=== PATIENT | female | born 1995 | race Caucasian/White ===

== ENCOUNTER 2017-09-23 01:15 | Inpatient (IN) | payer BC ==
[2017-09-23] MEDS ORDERED: Ondansetron 4 MG/2 ML SDV IVPUSH PRN ×2 (20:14→20:43)
[2017-09-23] MEDS ORDERED: Nalbuphine 20 MG/ML 1 ML Syringe IVPUSH PRN (20:14)
[2017-09-23] MEDS ORDERED: Sodium Chloride 0.9% 10 ML Syringe FLUSH PRN (20:14)
[2017-09-23] MEDS ORDERED: Lidocaine 1% 50 ML MDV INJECT ONE (20:14)
[2017-09-23] MEDS ORDERED: Oxytocin/Lactated Ringers 10 UNIT/1,000 ML BAG IV SCH ×2 (20:15)
[2017-09-23] MEDS: Lactated Ringers 1,000 ML IV SCH ×2 (20:30→21:46)
[2017-09-23] MEDS ORDERED: fentaNYL 100 MCG/2 ML SDV EPIDUR PRN (20:43)
[2017-09-23] MEDS ORDERED: diphenhydrAMINE 50 MG/ML SDV IVPUSH PRN (20:43)
[2017-09-23] MEDS ORDERED: ePHEDrine 50 MG/ML SDV IVPUSH PRN (20:43)
[2017-09-23] MEDS ORDERED: Bupivacaine/fentaNYL/NS 100 ML Bag EPIDUR SCH (20:45)
--- NOTE | 2017-09-23 21:29 | PCM.PREANE ---
Preanesthetic Assessment - Anesthesia/Transfusion/Family Hx Anesthesia History: Prior Anesthesia Without Reaction Transfusion History: No Prior Transfusion(s) - Review of Systems General: No Symptoms Pulmonary: No Symptoms Cardiovascular: No Symptoms Gastrointestinal: Other (Heartburn with ) Neurological: No Symptoms Other: Reports: None - Physical Assessment Pulse: 84 O2 Sat by Pulse Oximetry: 98 Respiratory Rate: 20 Blood Pressure: 113/62 Temperature: 37.0 C Height: 1.6 m Weight: 72.575 kg ASA Class: 2 Mental Status: Alert & Oriented x3 Airway Class: Mallampati = 1 Dentition: Reports: Normal Dentition Thyro-Mental Finger Breadths: 3 Mouth Opening Finger Breadths: 3 ROM/Head Extension: Full Lungs: Clear to Auscultation, Normal Respiratory Effort Cardiovascular: Regular Rate, Regular Rhythm - Lab Values: Laboratory Last Values WBC 8.58 K/mm3 (3.98-10.04) 09/23/17 19:45 RBC 3.57 M/mm3 (3.98-5.22) L 09/23/17 19:45 Hgb 10.5 gm/L (11.2-15.7) L 09/23/17 19:45 Hct 32.0 % (34.1-44.9) L 09/23/17 19:45 MCV 89.6 fl (79.4-94.8) 09/23/17 19:45 MCH 29.4 pg (25.6-32.2) 09/23/17 19:45 MCHC 32.8 g/dl (32.2-35.5) 09/23/17 19:45 RDW Std Deviation 40.5 fL (36.4-46.3) 09/23/17 19:45 Plt Count 159 K/mm3 (182-369) L 09/23/17 19:45 MPV 11.2 fl (9.4-12.3) 09/23/17 19:45 Neut % (Auto) 69.9 % (34.0-71.1) 09/23/17 19:45 Lymph % (Auto) 20.3 % (19.3-51.7) 09/23/17 19:45 [place] % (Auto) 8.9 % (4.7-12.5) 09/23/17 19:45 Eos % (Auto) 0.5 (0.7-5.8) L 09/23/17 19:45 Baso % (Auto) 0.1 % (0.1-1.2) 09/23/17 19:45 Neut # (Auto) 6.00 K/mm3 (1.56-6.13) 09/23/17 19:45 Lymph # (Auto) 1.74 K/mm3 (1.18-3.74) 09/23/17 19:45 [place] # (Auto) 0.76 K/mm3 (0.24-0.36) H 09/23/17 19:45 Eos # (Auto) 0.04 K/mm3 (0.04-0.36) 09/23/17 19:45 Baso # (Auto) 0.01 K/mm3 (0.01-0.08) 09/23/17 19:45 - Allergies Allergies/Adverse Reactions: Allergies Allergy/AdvReac Type Severity Reaction Status Date / Time Penicillins Allergy Rash Verified 09/23/17 20:12 - Acknowledgements Anesthesia Type Planned: Epidural Pt an Appropriate Candidate for the Planned Anesthesia: Yes Alternatives and Risks of Anesthesia Discussed w Pt/Guardian: Yes Pt/Guardian Understands and Agrees with Anesthesia Plan: Yes PreAnesthesia Questionnaire - Past Health History Medical/Surgical History: Denies 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 Smoking Status *Q: Never Smoker Second Hand Smoke Exposure: No Recreational Drug Use History: No - HOME MEDS Home Medications: Home Meds Prenat Vit Comb.10/Iron/Fa/Dha [Vitafol-OB + DHA] 1 tab PO DAILY 09/23/17 [ History] - CURRENT (IN HOUSE) MEDS Current Meds: Current Medications Diphenhydramine HCl (Benadryl) 25 mg IVPUSH Q6H PRN PRN Reason: Pruritis Ephedrine Sulfate (Ephedrine Sulfate) 5 mg IVPUSH ASDIRECTED PRN PRN Reason: Hypotension Fentanyl (Sublimaze) 100 mcg EPIDUR ONETIME PRN PRN Reason: Pain Last Admin: 09/23/17 21:25 Dose: 100 mcg Fentanyl/Bupivacaine HCl (Fentanyl/Bupivacaine/Ns 2 Mcg-0.125% 100 Ml) 100 ml EPIDUR ASDIRECTED JUNIOR Last Admin: 09/23/17 21:25 Dose: 100 ml Lactated Ringer's (Ringers, Lactated) 1,000 mls @ 100 mls/hr IV ASDIRECTED JUNIOR Oxytocin/Lactated Ringer's (Pitocin In Lr 10 Units/1,000 Ml) 10 unit in 1,000 mls @ 12 mls/hr IV TITRATE JUNIOR; Protocol Oxytocin/Lactated Ringer's (Pitocin In Lr 10 Units/1,000 Ml) 10 unit in 1,000 mls @ 100 mls/hr IV .CONTINUOUS JUNIOR; Protocol Nalbuphine HCl (Nubain) 10 mg IVPUSH Q2H PRN PRN Reason: pain Ondansetron HCl (Zofran) 4 mg IVPUSH Q4H PRN PRN Reason: Nausea/Vomiting Ondansetron HCl (Zofran) 4 mg IVPUSH ONETIME PRN PRN Reason: Nausea/Vomiting Sodium Chloride (Saline Flush) 10 ml FLUSH ASDIRECTED PRN PRN Reason: Keep Vein Open Discontinued Medications Lidocaine HCl (Xylocaine 1%) 50 ml INJECT ONETIME ONE Stop: 09/23/17 20:15
[2017-09-23] MEDS ORDERED: Bupivacaine 0.25% 10 ML SDV ONE (22:00)
[2017-09-24] MEDS ORDERED: Calcium Carbonate 500 MG Tab.Chew PO PRN (00:09)
--- NOTE | 2017-09-24 01:51 | PCM.SN ---
- Free Text/Narrative Note: Destiny is a 22-year-old 1 now para 1001 white female who was admitted on the evening of 09/23/2017 for elective induction of labor at 40-1/7 weeks gestational age. KEY was on 09/22/2017. As determined by certain LMP and ultrasound 2. Patient was induced with artificial rupture membranes with resultant clear amniotic fluid. She underwent epidural for analgesia in labor. She progressed rapidly within the course of 6-7 hours went to complete cervical dilation. She delivered a viable, 3880 g (8 pound 8.9 ounce) male infant with Apgars of 8 and 9, a length of 21 inches in an occiput anterior position. Baby delivered without problems and was placed on mom's abdomen. The baby was dried. Mouth bulb suctioned. The umbilical cord was clamped 2 and was cut by the patient's Patrick. Cord revealed 3 blood vessels. Cord blood was obtained. The patient was noted to have a small superficial vaginal laceration at approximately 6:30 position extending into the right labia minora somewhat. This was repaired with a running lock suture of 3-0 Monocryl. It should be noted Pitocin was started after delivery of the baby via IV to facilitate increase in uterine tone and decrease risk for uterine bleeding. The placenta delivered in a Kilpatrick presentation, appeared intact and complete and was discarded per patient desire. Patient plans to breast-feed. Estimated blood loss was 100 mL. Condition: Good
[2017-09-24] MEDS ORDERED: Lanolin 100% Cream 7 GM Tube TOP PRN (01:56)
[2017-09-24] MEDS ORDERED: Witch Hazel Medicated Pads 100/Jar TOP PRN (01:56)
[2017-09-24] MEDS ORDERED: Benzocaine/Menthol 20%-0.5% Spray 56 GM Canister TOP PRN (01:56)
[2017-09-24] MEDS: Ibuprofen 600 MG Tab PO PRN ×3 (02:09→22:30)
[2017-09-24] MEDS ORDERED: diphenhydrAMINE 25 MG Cap PO ONE (05:39)
[2017-09-24] MEDS ORDERED: diphenhydrAMINE 25 MG Cap PO PRN (06:50)
--- NOTE | 2017-09-24 07:37 | HP ---
DATE OF ADMISSION: 09/23/2017 ADMISSION DIAGNOSIS: A 40 and 1/7th week intrauterine , elective induction of labor. HISTORY OF PRESENT ILLNESS: The patient is a 22-year-old, 1, para 0 white female, who is admitted at 40 and 1/7th weeks' gestational age for elective induction of labor. Her KEY is 09/22/2017 as based upon a certain last menstrual period which started on 12/16/2016 and is supported by 2 ultrasounds done on 02/28/2017 and 05/08/2017. Her cycles started at age 11. They occur every 28 days. The patient was not using any control at the time of conception. Her HCG was positive on 01/12/2017. She had stopped her control around August 2016 with the intent of getting . The patient has had a normal 1-hour glucose tolerance test during the course. She declined genetic testing in the period. Her [place] Depression Screen score on 04/25/2017 was 2/30 and on 06/12/2017 was 6/30. She is group B strep negative. She desires epidural in Labor and Delivery. She is Rh negative and did have RhoGAM that was given at the end of the 2nd trimester. Her course started on 02/28/2017 with her first visit at 10 and 4/7th weeks. She had regular visitations and was a Centering patient. Made good fundal height growth and had normal vital signs throughout the . Her weight gain was from 109.6 pounds up to 155 pounds for a 45-pound weight gain. Laboratory testing in shows her blood to be A positive with a negative antibody screen. First labs showed a hemoglobin of 13.9 g/dL and a platelet count of 240,000. She is rubella immune. RPR is nonreactive. Urine culture was negative. Hepatitis B surface antigen and HIV assays were both negative. Gonorrhea and chlamydia were both negative. Her 1-hour GTT was normal on 06/04/2017 at 107. Her second trimester hemoglobin was 12.4 and her platelet count was 178,000. She is group B strep negative. ALLERGIES: Penicillin, which causes hives. CURRENT MEDICATIONS: 1. Ranitidine 150 mg capsules every 12 hours p.r.n. 2. vitamins 1 daily. 3. Zofran early in the for nausea, now not taking. PAST MEDICAL HISTORY: Unremarkable. PAST SURGICAL HISTORY: Unremarkable. FAMILY HISTORY: The patient has 3 younger siblings, all healthy except for younger sister has ADD and another sister with anxiety. Several with migraine problems. Mother is alive, but has migraine issues, psoriasis, and alopecia. Father is alive and well. Maternal aunts have had tough pregnancies and multiple miscarriages. Maternal grandmother is alive and well with the exception of migraine headaches. Maternal grandfather is alive, but with a history of skin cancer. Paternal grandmother is alive, but has questionable Alzheimer's early onset and paternal grandfather is alive and well. No anesthesia, bleeding, blood clotting problems noted in the family. SOCIAL HISTORY: The patient is . They live in [place], [place]. She does not use any significant amounts of alcohol, drugs, or tobacco. Her 's name is Patrick Peralta. REVIEW OF SYSTEMS: GENERAL: The patient is having no concerns. She feels some contractions. She has had good activity. SKIN: Negative. CARDIOVASCULAR: No chest pain or exercise intolerance. RESPIRATORY: No shortness of breath or infectious symptoms. BREASTS: Negative with the exception of change in size and tenderness secondary to . The patient plans to breast feed. GI: Negative. : Increased fundal height with fundal height consistent with dates. EXTREMITIES/MUSCULOSKELETAL: Negative with the exception of occasional trace edema. NEUROLOGICAL: Negative. PSYCHOLOGICAL: Negative. PHYSICAL EXAMINATION: Pregravid weight was 109.6 pounds. Height is 5 feet 3 inches. Pregravid body mass index was 20.4. On last evaluation in clinic on 09/18/2017, her blood pressure was 121/76, weight was 155 pounds, and fundal height growth was 38 cm. heart rate was 138 beats per minute. Weight gain during the was 45 pounds. GENERAL: The patient is a well-developed, well-nourished, pleasant female, stated age, in no acute distress. SKIN: Warm, dry, without lesions. HEENT: Within normal limits. NECK: Within normal limits. BACK: Within normal limits. LUNGS: Clear with good breath sounds in all lung mason. BREASTS: Deferred. ABDOMEN: Protuberant with with last fundal height at 38+ cm. Baby in vertex presentation. : Cervical exam shows cervix to be 2+ cm, 90% effaced, -2 station, mid position, very soft. After discussion of artificial rupture of membranes, induction is undertaken and the patient tolerated this very well. EXTREMITIES: Grossly within normal limits. NEUROLOGICAL: Grossly within normal limits. ASSESSMENT: 1. A 40 and 1/7th week intrauterine , admitted for elective induction of labor. The patient has had very adequate cervical change since her last evaluation on 09/10/2017. 2. Group B strep negative. 3. Rubella is immune. 4. The patient plans to breastfeed. 5. The patient desires epidural in Labor and Delivery. PLAN: 1. Anticipate normal spontaneous vaginal delivery. 2. Epidural p.r.n. for pain. 3. Routine labor care. 4. Very light diet. MMODAL /[id number]
--- NOTE | 2017-09-24 08:32 | PCM48HPAN ---
Post Anesthesia Note - EVALUATION WITHIN 48HRS OF ANESTHETIC Vital Signs in Normal Range: Yes Patient Participated in Evaluation: Yes Respiratory Function Stable: Yes Airway Patent: Yes Cardiovascular Function Stable: Yes Hydration Status Stable: Yes Pain Control Satisfactory: Yes Nausea and Vomiting Control Satisfactory: Yes Mental Status Recovered: Yes Pulse Rate: 84 Resp Rate: 20 Temperature: 98.6 F Blood Pressure: 113/62
--- NOTE | 2017-09-24 08:47 | PCM.SN ---
- Free Text/Narrative Note: note: Patient is doing well in the period. Minimal lochia, voiding well, ambulated without problems. Nursing without concerns. Patient is afebrile, vital signs are stable Abdomen is flat, soft, uterus at the umbilicus and is firm and nontender. Legs are nontender. Minimal edema noted. Assessment: recovery going well. Plan: Routine care. CBC in a.m. Patient be discharged home within the next 24-48 hours.
[2017-09-24] MEDS: Prenatal Multivitamin with Calcium/Folic Acid/Iron Tab PO SCH (13:09)
[2017-09-24] MEDS: Docusate Sodium 100 MG Cap PO PRN (15:58)
[2017-09-24] MEDS: Acetaminophen 325 MG Tab PO PRN (16:00)
[2017-09-25] MEDS: Acetaminophen 325 MG Tab PO PRN (03:45)
[2017-09-25] MEDS: Ibuprofen 600 MG Tab PO PRN ×2 (04:18→08:41)
[2017-09-25] MEDS: Prenatal Multivitamin with Calcium/Folic Acid/Iron Tab PO SCH (08:29)
[2017-09-25] MEDS: Docusate Sodium 100 MG Cap PO PRN (08:42)
--- NOTE | 2017-09-25 09:37 | PCM.DCSUM1 ---
Discharge Summary - Hospital Course Free Text/Narrative:: Destiny is a 22-year-old 1 now para 1001 white female who was admitted on the evening of 09/23/2017 for elective induction of labor at 40-1/7 weeks gestational age. KEY was on 09/22/2017. As determined by certain LMP and ultrasound 2. Patient was induced with artificial rupture membranes with resultant clear amniotic fluid. She underwent epidural for analgesia in labor. She progressed rapidly within the course of 6-7 hours went to complete cervical dilation. She delivered a viable, 3880 g (8 pound 8.9 ounce) male infant with Apgars of 8 and 9, a length of 21 inches in an occiput anterior position. Baby delivered without problems and was placed on mom's abdomen. The baby was dried. Mouth bulb suctioned. The umbilical cord was clamped 2 and was cut by the patient's Patrick. Cord revealed 3 blood vessels. Cord blood was obtained. The patient was noted to have a small superficial vaginal laceration at approximately 6:30 position extending into the right labia minora somewhat. This was repaired with a running lock suture of 3-0 Monocryl. It should be noted Pitocin was started after delivery of the baby via IV to facilitate increase in uterine tone and decrease risk for uterine bleeding. The placenta delivered in a Kilpatrick presentation, appeared intact and complete and was discarded per patient desire. Patient plans to breast-feed. Estimated blood loss was 100 mL. patient has done well. She had normal with normal flow, voiding and is nursing well. She is desiring discharge home. Diagnosis: Stroke: No - Discharge Data Discharge Date: 09/25/17 Discharge Disposition: Home, Self-Care 01 Condition: Good - Patient Instructions Diet: Regular Diet as Tolerated (Nursing diet with increase in calories and calcium is recommended) Activity: As Tolerated (No intercourse tampons still bleeding results.) Driving: May Drive Today Showering/Bathing: May Shower (May take a bath) Notify Provider of: Fever, Increased Pain, Swelling and Redness, Nausea and/or Vomiting - Discharge Plan *PRESCRIPTION DRUG MONITORING PROGRAM REVIEWED*: No *COPY OF PRESCRIPTION DRUG MONITORING REPORT IN PATIENT DEB: No Home Medications: Home Meds Prenat Vit Comb.10/Iron/Fa/Dha [Vitafol-OB + DHA] 1 tab PO DAILY 09/23/17 [ History] Acetaminophen [Tylenol] 650 mg PO Q4H PRN tablet 09/25/17 [Rx] Ibuprofen [Motrin] 600 mg PO Q4H PRN tablet 09/25/17 [Rx] - Discharge Summary/Plan Comment DC Time >30 min.: No Discharge Summary/Plan Comment: Discharge instructions: 1. Discharge home 2. Diet, activity and follow-up discussed with patient. Recommend nursing diet with increased calories and calcium. 3. Precautions given concern increased pain, bleeding, temperature, signs/ symptoms of DVT/PE. 4. Medications per home medication was printed, discussed with and given to the patient. 5. Return to clinic-[facility] in 2 weeks. Diagnosis: Term -delivered Condition: Good - Patient Data Vitals - Most Recent: Last Vital Signs Temp 36.7 C 09/25/17 03:47 Pulse 86 09/25/17 03:47 Resp 16 09/25/17 03:47 BP 129/78 09/25/17 03:47 Pulse Ox 100 09/25/17 03:47 Weight - Most Recent: 72.575 kg I&O - Last 24 hours: Intake & Output 09/24/17 09/25/17 09/25/17 22:59 06:59 14:59 Intake Total 0 Balance 0 Lab Results - Last 24 hrs: Laboratory Results - last 24 hr 09/23/17 09/25/17 Range/Units 19:45 06:35 WBC 10.05 H (3.98-10.04) K/mm3 RBC 3.16 L (3.98-5.22) M/mm3 Hgb 9.2 L (11.2-15.7) gm/L Hct 28.7 L (34.1-44.9) % MCV 90.8 (79.4-94.8) fl MCH 29.1 (25.6-32.2) pg MCHC 32.1 L (32.2-35.5) g/dl RDW Std Deviation 40.9 (36.4-46.3) fL Plt Count 140 L (182-369) K/mm3 MPV 10.9 (9.4-12.3) fl RPR Non-reactive (NONREACTIVE) Med Orders - Current: Current Medications Acetaminophen (Tylenol) 650 mg PO Q4H PRN PRN Reason: mild pain or fever Last Admin: 09/25/17 03:45 Dose: 650 mg Benzocaine/Menthol (Dermoplast Pain Relief [place]) 0 gm TOP ASDIRECTED PRN PRN Reason: Perineal Comfort Measure Last Admin: 09/24/17 02:10 Dose: 1 can Docusate Sodium (Colace) 100 mg PO BID PRN PRN Reason: Constipation Last Admin: 09/25/17 08:42 Dose: 100 mg Emollient Ointment (Lansinoh Hpa) 0 gm TOP ASDIRECTED PRN PRN Reason: Sore Nipples Last Admin: 09/25/17 08:29 Dose: 1 applic Ibuprofen (Motrin) 600 mg PO Q4H PRN PRN Reason: Mild pain or fever Last Admin: 09/25/17 08:41 Dose: 600 mg Prenat Multivit/[place]/Iron/Folic Ac ( Plus Iron) 1 each PO DAILY JUNIOR Last Admin: 09/25/17 08:29 Dose: 1 each Witch Sandhya (Tucks) 1 pad TOP ASDIRECTED PRN PRN Reason: Hemorrhoid pain Last Admin: 09/24/17 02:11 Dose: 1 can Discontinued Medications Bupivacaine HCl (Sensorcaine-Mpf 0.25%) 10 ml .ROUTE .STK-MED ONE Stop: 09/23/17 22:01 Calcium Carbonate/Glycine (Tums) 1,000 mg PO Q2HR PRN PRN Reason: Indigestion Last Admin: 09/24/17 00:30 Dose: 1,000 mg Diphenhydramine HCl (Benadryl) 25 mg IVPUSH Q6H PRN PRN Reason: Pruritis Last Admin: 09/23/17 21:38 Dose: 25 mg Diphenhydramine HCl (Benadryl) 25 mg PO ONETIME ONE Stop: 09/24/17 05:40 Last Admin: 09/24/17 06:00 Dose: 25 mg Diphenhydramine HCl (Benadryl) 25 mg PO ONETIME PRN PRN Reason: may repeat dose given at 645am Stop: 09/24/17 07:30 Ephedrine Sulfate (Ephedrine Sulfate) 5 mg IVPUSH ASDIRECTED PRN PRN Reason: Hypotension Fentanyl (Sublimaze) 100 mcg EPIDUR ONETIME PRN PRN Reason: Pain Last Admin: 09/23/17 21:25 Dose: 100 mcg Fentanyl/Bupivacaine HCl (Fentanyl/Bupivacaine/Ns 2 Mcg-0.125% 100 Ml) 100 ml EPIDUR ASDIRECTED JUNIOR Last Admin: 09/23/17 21:25 Dose: 100 ml Lactated Ringer's (Ringers, Lactated) 1,000 mls @ 100 mls/hr IV ASDIRECTED JUNIOR Last Admin: 09/23/17 21:46 Dose: 100 mls/hr Oxytocin/Lactated Ringer's (Pitocin In Lr 10 Units/1,000 Ml) 10 unit in 1,000 mls @ 12 mls/hr IV TITRATE JUNIOR; Protocol Oxytocin/Lactated Ringer's (Pitocin In Lr 10 Units/1,000 Ml) 10 unit in 1,000 mls @ 100 mls/hr IV .CONTINUOUS JUNIOR; Protocol Last Admin: 09/24/17 01:54 Dose: 500 mls/hr Lidocaine HCl (Xylocaine 1%) 50 ml INJECT ONETIME ONE Stop: 09/23/17 20:15 Nalbuphine HCl (Nubain) 10 mg IVPUSH Q2H PRN PRN Reason: pain Ondansetron HCl (Zofran) 4 mg IVPUSH Q4H PRN PRN Reason: Nausea/Vomiting Ondansetron HCl (Zofran) 4 mg IVPUSH ONETIME PRN PRN Reason: Nausea/Vomiting Sodium Chloride (Saline Flush) 10 ml FLUSH ASDIRECTED PRN PRN Reason: Keep Vein Open
== END 2017-09-25 12:30 | disposition home or self-care (01) | DRG 560 ==
LOC: JD.OB 01:15 → OBSVTOIN 09-24 01:15 → JD.OB 09-24 01:30
PROVIDERS: ADMIT Obstetrics & Gynecology; ATTEND Obstetrics & Gynecology
PROC: 0UQGXZZ Repair Vagina, External Approach (ICD-10-PCS; principal; 2017-09-24)
PROC: 10E0XZZ Delivery of Products of Conception, External Approach (ICD-10-PCS; principal; 2017-09-24)
PROC: 10907ZC Drainage of Amniotic Fluid, Therapeutic from Products of Conception, Via Natural or Artificial Opening (ICD-10-PCS; principal; 2017-09-24)
PROC: 6A550ZT Pheresis of Cord Blood Stem Cells, Single (ICD-10-PCS; principal; 2017-09-24)
PROC: 00HU33Z Insertion of Infusion Device into Spinal Canal, Percutaneous Approach (ICD-10-PCS; 2017-09-24)
PROC: 3E0R3BZ Introduction of Anesthetic Agent into Spinal Canal, Percutaneous Approach (ICD-10-PCS; 2017-09-24)
DX: O48.0 Post-term pregnancy (principal); Z3A.40 40 weeks gestation of pregnancy; O71.4 Obstetric high vaginal laceration alone; Z37.0 Single live birth
CPT/HCPCS: 01967; 36415; 51702; 59020; 59300; 59409; 85025; 85027; 86592; A9270-GY; J1200; J2590; J3010; J3490; J7120

== ENCOUNTER 2018-06-23 14:07 | Emergency (ER) | payer BC ==
[2018-06-23] MEDS ORDERED: Sodium Chloride 0.9% 10 ML Syringe FLUSH PRN (14:58)
[2018-06-23] MEDS ORDERED: Ketorolac 30 MG/ML SDV IVPUSH ONE (14:58)
[2018-06-23] MEDS ORDERED: Lactated Ringers 1,000 ML IV ONE (14:58)
[2018-06-23] MEDS ORDERED: Cephalexin 500 MG Cap PO ONE (15:03)
--- NOTE | 2018-06-23 15:41 | EDM.PDOC ---
ED HPI GENERAL MEDICAL PROBLEM - General Chief Complaint: General Stated Complaint: BREAST PAIN Time Seen by Provider: 06/23/18 15:02 Source of Information: Reports: Patient History Limitations: Reports: No Limitations - History of Present Illness INITIAL COMMENTS - FREE TEXT/NARRATIVE: 23 year old female presents for evaluation and treatment of breast pain. Patient reports she has had intermittent breast pain for several weeks. Reports last night she developed severe pain to the right breast. She reports associated symptoms of fevers, chills, nausea, vomiting, headaches, bodyaches and diaphoresis. She is currently her 9 month old son. Estimates she is about 6 times a day. Tried ibuprofen for pain and discomfort. Last dose was at 0730 this morning. She has never had mastitis before and denies any problems with engorgement recently. Ob is Dr. Charles and Ceci Plata. 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 Denies: Abdominal Pain : Reports: No Symptoms. Denies: Dysuria Neurological: Reports: Headache ED EXAM, GENERAL - Physical Exam Exam: See Below Exam Limited By: No Limitations General Appearance: Alert, WD/WN, Mild Distress Eye Exam: Bilateral Eye: Normal Inspection Ears: Normal External Exam Throat/Mouth: Normal Inspection, Normal Lips, Normal Voice, No Airway Compromise , Other (dry mucus membranes) Respiratory/Chest: No Respiratory Distress, Lungs Clear, Normal Breath Sounds, Other (right breast lateral side is erythematous, tender and warm to touch from approximately 6 o'clock to 11 o'clock on the right breast) Cardiovascular: Normal Peripheral Pulses, Regular Rate, Rhythm, No Murmur Neurological: Alert, Oriented, Normal Cognition Psychiatric: Normal Affect, Normal Mood Skin Exam: Warm, Dry, Normal Color Course - Vital Signs Last Recorded V/S: Last Vital Signs Temp 97.8 F 06/23/18 14:17 Pulse 93 06/23/18 14:17 Resp 18 06/23/18 14:17 BP 103/65 06/23/18 14:17 Pulse Ox 100 06/23/18 14:17 - Orders/Labs/Meds Orders: Active Orders 24 hr Category Date Time Status Peripheral IV Care [RC] . DIRECTED Care 06/23/18 14:58 Active CULTURE WOUND [RM] Stat Lab 06/23/18 16:59 Ordered Sodium Chloride 0.9% [Saline Flush] Med 06/23/18 14:58 Active 10 ml FLUSH ASDIRECTED PRN Peripheral IV Insertion Adult [OM.PC] Routine Oth 06/23/18 14:58 Ordered Medication Orders Sodium Chloride (Saline Flush) 10 ml FLUSH ASDIRECTED PRN PRN Reason: Keep Vein Open Last Admin: 06/23/18 15:49 Dose: 10 ml Labs: Laboratory Tests 06/23/18 06/23/18 Range/Units 15:33 15:33 WBC 13.96 H (3.98-10.04) K/mm3 RBC 4.52 (3.98-5.22) M/mm3 Hgb 14.0 D (11.2-15.7) gm/L Hct 40.0 (34.1-44.9) % MCV 88.5 (79.4-94.8) fl MCH 31.0 (25.6-32.2) pg MCHC 35.0 (32.2-35.5) g/dl RDW Std Deviation 37.4 (36.4-46.3) fL Plt Count 233 (182-369) K/mm3 MPV 9.7 (9.4-12.3) fl Neut % (Auto) 88.0 H (34.0-71.1) % Lymph % (Auto) 6.9 L (19.3-51.7) % Parmer % (Auto) 4.4 L (4.7-12.5) % Eos % (Auto) 0.5 L (0.7-5.8) Baso % (Auto) 0.1 (0.1-1.2) % Neut # (Auto) 12.28 H (1.56-6.13) K/mm3 Lymph # (Auto) 0.97 L (1.18-3.74) K/mm3 Parmer # (Auto) 0.61 H (0.24-0.36) K/mm3 Eos # (Auto) 0.07 (0.04-0.36) K/mm3 Baso # (Auto) 0.02 (0.01-0.08) K/mm3 Manual Slide Review Abnormal smear C-Reactive Protein 7.0 H* (<1.0) mg/dL Meds: Medications Generic Name Dose Route Start Last Admin Trade Name Freq PRN Reason Stop Dose Admin Sodium Chloride 10 ml 06/23/18 14:58 06/23/18 15:49 Saline Flush FLUSH 10 ml ASDIRECTED PRN Administration Keep Vein Open Discontinued Medications Generic Name Dose Route Start Last Admin Trade Name Freq PRN Reason Stop Dose Admin Cephalexin 500 mg 06/23/18 15:03 06/23/18 15:49 Keflex PO 06/23/18 15:04 500 mg ONETIME ONE Administration Lactated Ringer's 1,000 mls @ 999 mls/hr 06/23/18 14:58 06/23/18 15:48 Ringers, Lactated IV 06/23/18 15:58 999 mls/hr .BOLUS ONE Administration Ketorolac Tromethamine 30 mg 06/23/18 14:58 06/23/18 15:46 Toradol IVPUSH 06/23/18 14:59 30 mg ONETIME ONE Administration Ondansetron HCl 4 mg 06/23/18 15:48 06/23/18 15:51 Zofran IVPUSH 06/23/18 15:49 4 mg ONETIME ONE Administration - Re-Assessments/Exams Free Text/Narrative Re-Assessment/Exam: 06/23/18 17:19 Reviewed the labs with the patient. Will start on cephalexin due to pcn allergy. Encouraged to use tylenol, motrin, heat and ice and to continue to pump or breast feed. Follow-up in 2-3 days to ensure improvement. Discharge instructions as documented. Departure - Departure Time of Disposition: 17:40 Disposition: Home, Self-Care 01 Condition: Fair Clinical Impression: Mastitis - Discharge Information *PRESCRIPTION DRUG MONITORING PROGRAM REVIEWED*: No *COPY OF PRESCRIPTION DRUG MONITORING REPORT IN PATIENT DEB: No Instructions: Mastitis, Heih-ol-Ervi Referrals: Giovanni Charles MD [Primary Care Provider] - Forms: ED Department Discharge Additional Instructions: Rx from [facility] zofran 4mg sublingual #10 cephalexin 500mg PO every 6 hours x 10 days #40 Take the cephalexin as prescribed 1 cap PO every 6 hours x 10 days. zofran 4mg sublingual every 8 hours prn nausea Alternate between tylenol and motrin every 3 hours. You may take up to 3200mg of ibuprofen in one day and up to 4grams of tylenol in one day. Utilize heat and cold packs for additional pain relief. Continue to breast feed or pump to help unclog any blocked milk ducts. Follow-up with Ob Sunday or Sunday. If you are not improving you may require additional testing or a change in your antibiotics. Please return to the ER should your symptoms change or worsen. - My Orders Last 24 Hours: My Active Orders 06/23/18 14:58 Peripheral IV Care [RC] . DIRECTED Sodium Chloride 0.9% [Saline Flush] 10 ml FLUSH ASDIRECTED PRN Peripheral IV Insertion Adult [OM.PC] Routine 06/23/18 16:59 CULTURE WOUND [RM] Stat - Assessment/Plan Last 24 Hours: My Active Orders 06/23/18 14:58 Peripheral IV Care [RC] . DIRECTED Sodium Chloride 0.9% [Saline Flush] 10 ml FLUSH ASDIRECTED PRN Peripheral IV Insertion Adult [OM.PC] Routine 06/23/18 16:59 CULTURE WOUND [RM] Stat
[2018-06-23] MEDS ORDERED: Ondansetron 4 MG/2 ML SDV IVPUSH ONE (15:48)
== END 2018-06-23 17:30 | disposition home or self-care (01) ==
LOC: JD.ED 14:07
DX: N61.0 Mastitis without abscess (principal); Z88.0 Allergy status to penicillin
CPT/HCPCS: 36415; 85025; 86140; 87070; 96361; 96374; 96375; 99283; A9270; J1885; J2405; J7120; 99284

== ENCOUNTER 2019-06-03 07:07 | Inpatient (IN) | payer BC, OTHER ==
--- NOTE | 2019-06-02 19:09 | PCM.LDHP ---
L&D History of Present Illness - General Date of Service: 06/03/19 Admit Problem/Dx: Admission Diagnosis/Problem Admission Diagnosis/Problem 06/02/19 18:39 Destiny is a 24-year-old 2 para 1001 white female who is presently at 37- 5/7 weeks gestational age with an KEY of 06/21/2019 who is being admitted for pruritis in and elevated bile acids. Findings suggestive but not absolute for the diagnosis of intrahepatic cholestasis of . Source of Information: Patient History Limitations: Reports: No Limitations - History of Present Illness Introduction:: Destiny is a 24-year-old 2 para 1001 white female who is presently at 37- 5/7 weeks gestational age with an KEY of 06/21/2019 who is being admitted for pruritis in and elevated bile acids. Findings suggestive but not absolute for the diagnosis of intrahepatic cholestasis of .Patient's bile acids were evaluated 04/24/2019 because the patient's severe internal Internal itching without a rash. Total glasses returned at 3.7 which is normal however her ursodeoxycholic acid was elevated at 3.0. Paracolic acid was less than 0.10. She no deoxycholic acid was normal at 0.40. The deoxycholic acid was 0.60normal. Because of the severe retractable itching patient was started on ursodiol prior to the bile acid results become available. She was on 300 mg by mouth 3 times a day. She is also started on hydroxyzine 50 mg by mouth every 6 hours when necessary for itching. With this therapy patient's itching became manageable however it persisted throughout the remainder of the . Has of the patient's clinical symptoms, her elevated some fraction of bile acid and the improvement that she received from the ursodiol and hydroxyzine therapy the decision was made to proceed with testing and consider earlier medical induction of labor. She was evaluated with biophysical profile from approximately 31 weeks until the present time. These have returned 09/12 each week. Reported good activity. Baby is showing good fundal height growth. She is scheduled for induction and I recommended Pitocin induction with AROM augmentation. The process, risks, benefits, alternatives of care are discussed in detail with patient. With her concern for the well-being of her baby she was decided to proceed. 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 Her KEY is 06/21/2019 is based upon an early ultrasound done 11/01/2018 placing her at 6-6/7 weeks gestational age. Multiple ultrasounds done throughout the are supportive of this KEY. Her last menstrual period was on 09/09/2018. She had menarche at age 11. Cycles every 28 days. Not using any control time conception. Her past obstetric history includes a male infant born 09/24/2017 at 40-2/7 weeks gestational age after 5 hours of labor. The baby weighed 8 lbs. 9 oz. She had a normal spontaneous vaginal delivery. Epidural was used for analgesia. Baby delivered at [facility]. Child's name is Vince. She denies any STI's. Also denies any abnormal Pap smears. She has had a history of depression in the past placing her at higher risk for depression with this . course: Patient was seen on a regular basis starting on the 2018 for an early ultrasound. She is dated by this ultrasound. She was seen regularly and weakly towards the end. Her weight gain was from a pre- weight of 109.2 pounds to a final weight of 150 pounds for a or 40.8 pound increase. Other than the severe pruritis and the somewhat atypical findings supportive but not diagnostic of the diagnosis of intrahepatic cholestasis of patient has had a relatively normal course. Her vital signs stable and her fundal height growth has been normal. testing with biophysical profiles and nonstress tests has been reassuring. She has received her T Dap and her flu immunization during course. Laboratory testing and blood is a negative with a negative and by screen. First hemoglobin is 14.5 g or deciliter. Platelets are 219, 000. She is rubella immune. Urine culture was unremarkable. Second trimester testing showed a hemoglobin 12.1 g or deciliter with platelets at 181,000. Her screening was negative and patient received RhoGAM on 04/10/2019. Third trimester hemoglobin was 11.6 and platelets are 157,000. This laboratory test was done on 04/10/2019. Early on her progesterone and serum quantitative beta hCG were rising appropriately. Her GGT on 04/08/2019 was 7. Group B strep screen is negative. Patient had a [facility] noninvasive genetic testing which was unremarkable. She plans to breast-feed. She did have migraine headaches and some nausea and vomiting early . Desires epidural in labor and delivery. Allergies: Penicillin which causes hives Medications: 1. Hydroxyzine HCL 50 mg by mouth every 6 hours when necessary for itching. 2. Ursodiol 300 mg by mouth 3 times a day. 3. Zofran early in at 4 mg by mouth every 4 hours when necessary for nausea. 4. Diclegis when necessary for nausea early in . 5. vitamins daily Past medical history: 1. Normal spontaneous vaginal delivery 09/24/2017 2. History of depression on medications approximately 2017 3. Atypical intrahepatic cholestasis of . Family history: Patient has 3 younger siblings are healthy except for younger sister has ADD and another sister with anxiety disorder. Several migraine problems. Mother is alive and well with the exception of migraine headaches, psoriasis and alopecia. Maternal aunts have had difficult and multiple miscarriages but otherwise are healthy. Maternal grandmother is alive and well with the exception of migraine headaches. Maternal grandfather is alive with history of skin cancers. Father is alive and well. Paternal grandmother is alive with possible Alzheimer's. Paternal grandfather is alive and well. No anesthesia, bleeding, blood clotting tones are noted in the family. Social history: Patient is . is [employer]. She and her family live in [place], [place]. She does not use any significant most alcohol, drugs or tobacco. Review of systems: In general patient is only main concern is P rhinitis which is manageable with medication therapy. She reports good activity and no significant contractions. Skin: Negative Lungs: No infectious symptoms or shortness of breath Cardiovascular: No chest pain or exercise intolerance Breasts: Changes associated with .. GI: Negative : Fundal height increased consistent with . AB has been Musculoskeletal: Negative Neurological: Negative In general the patient is well-developed, well-nourished, pleasant female of stated age was only concern is her pruritus. Skin is warm dry without lesions. No rashes are noted. HEENT, neck and back within normal limits. Lungs are clear with good breath sounds in all lung mason. Cardiovascular exam shows regular and rhythm without murmurs. Breasts: Not evaluated at this time. Patient reports no problems with breasts. She is planning on nursing. Abdomen is gravid. Fundal height on last evaluation clinic at 37 weeks was 37 cm with baby in a vertex presentation.. Genital exam per digital evaluation shows cervix to be 2 cm, 50% effaced, soft, mid position, -2 station. Extremities and neurological exam are grossly within normal limits. 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 37-5/7 week IUP with classical symptoms for intrahepatic cholestasis of but without elevation of all bile acid sub fractions. She is admitted for medical induction of labor. 2. testing has been reassuring with BPP is 8/8 and reactive nonstress test done weekly. 3. Group B strep screen is negative. 4. The patient plans to breast-feed. 5. Patient received her influenza immunization on 12/25/2018, her T-dap on 2019. She is rubella immune. Patient desires epidural in labor and delivery. Plan: 1. Medical induction of labor on 06/03/2019 with Pitocin followed by AROM augmentation. 2. CBC, CMP, RPR upon admission. 3. Support breast-feeding decision 4. Epidural per patient desire in labor. 5. Anticipate normal spontaneous vaginal delivery.
[2019-06-03] MEDS ORDERED: Lidocaine 1% 50 ML MDV INJECT ONE (08:04)
[2019-06-03] MEDS ORDERED: Nalbuphine 10 MG/ML Syringe IVPUSH PRN (08:04)
[2019-06-03] MEDS ORDERED: Sodium Chloride 0.9% 10 ML Syringe FLUSH PRN (08:04)
[2019-06-03] MEDS ORDERED: Oxytocin/Lactated Ringers 10 UNIT/1,000 ML BAG IV SCH ×2 (08:15)
--- NOTE | 2019-06-03 08:18 | PCM.PREANE ---
Preanesthetic Assessment - Procedure Proposed Procedure: Continuous labor epidural - Anesthesia/Transfusion/Family Hx Anesthesia History: Prior Anesthesia Without Reaction Transfusion History: No Prior Transfusion(s) - Review of Systems General: No Symptoms Pulmonary: No Symptoms Cardiovascular: No Symptoms Gastrointestinal: No Symptoms Neurological: No Symptoms Other: Reports: None - Physical Assessment ASA Class: 2 Mental Status: Alert & Oriented x3 Airway Class: Mallampati = 2 Dentition: Reports: Normal Dentition Thyro-Mental Finger Breadths: 3 Mouth Opening Finger Breadths: 3 ROM/Head Extension: Full Lungs: Clear to Auscultation, Normal Respiratory Effort Cardiovascular: Regular Rate, Regular Rhythm - Allergies Allergies/Adverse Reactions: Allergies Allergy/AdvReac Type Severity Reaction Status Date / Time Penicillins Allergy Hives Verified 06/03/19 08:10 - Acknowledgements Anesthesia Type Planned: Epidural Pt an Appropriate Candidate for the Planned Anesthesia: Yes Alternatives and Risks of Anesthesia Discussed w Pt/Guardian: Yes Pt/Guardian Understands and Agrees with Anesthesia Plan: Yes PreAnesthesia Questionnaire - Past Health History Medical/Surgical History: Denies Medical/Surgical History 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 Gastrointestinal History: 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: - HOME MEDS Home Medications: Home Meds No122/Iron/Folic Acid [ Multi Tablet] 1 each PO DAILY 06/03/19 [History] diphenhydrAMINE HCL [Benadryl] 25 mg PO Q4HR 06/03/19 [History] raNITIdine 150 mg PO Q12HR 06/03/19 [History] ursodioL [Ursodiol] 300 mg PO TID 06/03/19 [History] - CURRENT (IN HOUSE) MEDS Current Meds: Current Medications Lactated Ringer's (Ringers, Lactated) 1,000 mls @ 100 mls/hr IV ASDIRECTED JUNIOR Oxytocin/Lactated Ringer's (Pitocin In Lr 10 Units/1,000 Ml) 10 unit in 1,000 mls @ 12 mls/hr IV TITRATE JUNIOR; Protocol Oxytocin/Lactated Ringer's (Pitocin In Lr 10 Units/1,000 Ml) 10 unit in 1,000 mls @ 500 mls/hr IV .CONTINUOUS JUNIOR Nalbuphine HCl (Nubain) 10 mg IVPUSH Q2H PRN PRN Reason: Pain Sodium Chloride (Saline Flush) 10 ml FLUSH ASDIRECTED PRN PRN Reason: Keep Vein Open Discontinued Medications Lidocaine HCl (Xylocaine 1%) 20 ml INJECT ONETIME ONE Stop: 06/03/19 08:05
[2019-06-03] MEDS: Lactated Ringers 1,000 ML IV SCH ×3 (08:29→11:36)
[2019-06-03] MEDS ORDERED: diphenhydrAMINE 50 MG/ML SDV IVPUSH PRN (08:56)
[2019-06-03] MEDS ORDERED: ePHEDrine 50 MG/ML SDV IVPUSH PRN (08:56)
[2019-06-03] MEDS ORDERED: Bupivacaine/fentaNYL/NS 100 ML Bag EPIDUR PRN (08:56)
[2019-06-03] MEDS ORDERED: fentaNYL 100 MCG/2 ML SDV EPIDUR PRN (08:56)
[2019-06-03] MEDS ORDERED: Acetaminophen 325 MG Tab PO PRN (17:12)
[2019-06-03] MEDS ORDERED: hydrOXYzine HCl 25 MG Tab PO PRN (17:52)
--- NOTE | 2019-06-03 18:00 | PCM.SN.2 ---
- Free Text/Narrative Note: Delivery note: Patient is admitted for induction of labor. Brief history of present illness follows: Destiny is a 24-year-old 2 para 1001 white female who is presently at 37-5/7 weeks gestational age with an KEY of 06/21/2019 who is being admitted for pruritis in and elevated bile acids. Findings suggestive but not absolute for the diagnosis of intrahepatic cholestasis of .Patient's bile acids were evaluated 04/24/2019 because the patient's severe internal Internal itching without a rash. Total glasses returned at 3.7 which is normal however her ursodeoxycholic acid was elevated at 3.0. Paracolic acid was less than 0.10. She no deoxycholic acid was normal at 0.40. The deoxycholic acid was 0.60normal. Because of the severe retractable itching patient was started on ursodiol prior to the bile acid results become available. She was on 300 mg by mouth 3 times a day. She is also started on hydroxyzine 50 mg by mouth every 6 hours when necessary for itching. With this therapy patient's itching became manageable however it persisted throughout the remainder of the . Has of the patient's clinical symptoms, her elevated some fraction of bile acid and the improvement that she received from the ursodiol and hydroxyzine therapy the decision was made to proceed with testing and consider earlier medical induction of labor. She was evaluated with biophysical profile from approximately 31 weeks until the present time. These have returned 8/8 each week. Reported good activity. Baby is showing good fundal height growth. She underwent Pitocin induction with artificial rupture membranes augmentation of labor. She had an epidural placed for labor analgesia. This worked well for her. She progressed relatively quickly through labor. At 1437 hrs. she delivered a viable, hull, male with Apgars of 8 and 9, weight of 3100 g (6 lbs. 13 oz., a length of 20.0 inches in a right occiput anterior position. Baby was placed on mom's abdomen. Cord was allowed to pulsate for 2-3 minutes and was then clamped and cut by the baby's father. Pitocin was increased to 500 mL an hour to facilitate increase in uterine tone and decrease likelihood of bleeding. Cord blood was obtained. The umbilical cord had 3 vessels. The placenta delivered at 1441 hrs. in a Kilpatrick presentation, appeared intact and complete and was discarded per patient desire. The patient was noted to have a first-degree perineal laceration which was repaired with a single suture of 3-0 Monocryl. Labor analgesia with epidural was used for perineal anesthesia for this repair. Patient tolerated the repair well. Epidural catheter was removed without problem. Patient plans to breast-feed. Estimated blood loss was 100 mL. Condition: Good
[2019-06-03] MEDS: Ibuprofen 600 MG Tab PO PRN ×2 (18:17→22:35)
[2019-06-03] MEDS: Witch Hazel Medicated Pads 40/Jar TOP PRN (18:18)
[2019-06-03] MEDS: Benzocaine/Menthol 20%-0.5% Spray 56 GM Canister TOP PRN (18:19)
[2019-06-04] MEDS ORDERED: Lidocaine 1.5% with EPINEPHrine 1:200,000 5 ML Amp ONE
[2019-06-04] MEDS ORDERED: Docusate Sodium 100 MG Cap PO PRN (02:43)
[2019-06-04] MEDS: Ibuprofen 600 MG Tab PO PRN ×3 (02:46→13:12)
--- NOTE | 2019-06-04 05:51 | PCM.DCSUM1 ---
Discharge Summary - Hospital Course Free Text/Narrative:: Patient is admitted for induction of labor. Brief history of present illness follows: Destiny is a 24-year-old 2 para 1001 white female who is presently at 37-5/7 weeks gestational age with an KEY of 06/21/2019 who is being admitted for pruritis in and elevated bile acids. Findings suggestive but not absolute for the diagnosis of intrahepatic cholestasis of .Patient's bile acids were evaluated 04/24/2019 because the patient's severe internal Internal itching without a rash. Total glasses returned at 3.7 which is normal however her ursodeoxycholic acid was elevated at 3.0. Paracolic acid was less than 0.10. She no deoxycholic acid was normal at 0.40. The deoxycholic acid was 0.60normal. Because of the severe retractable itching patient was started on ursodiol prior to the bile acid results become available. She was on 300 mg by mouth 3 times a day. She is also started on hydroxyzine 50 mg by mouth every 6 hours when necessary for itching. With this therapy patient's itching became manageable however it persisted throughout the remainder of the . Has of the patient's clinical symptoms, her elevated some fraction of bile acid and the improvement that she received from the ursodiol and hydroxyzine therapy the decision was made to proceed with testing and consider earlier medical induction of labor. She was evaluated with biophysical profile from approximately 31 weeks until the present time. These have returned 8/8 each week. Reported good activity. Baby is showing good fundal height growth. She underwent Pitocin induction with artificial rupture membranes augmentation of labor. She had an epidural placed for labor analgesia. This worked well for her. She progressed relatively quickly through labor. At 1437 hrs. she delivered a viable, hull, male infant with Apgars of 8 and 9, weight of 3100 g (6 lbs. 13 oz., a length of 20.0 inches in a right occiput anterior position. Baby was placed on mom's abdomen. Cord was allowed to pulsate for 2-3 minutes and was then clamped and cut by the baby's father. Pitocin was increased to 500 mL an hour to facilitate increase in uterine tone and decrease likelihood of bleeding. Laboratory testing was within normal to exception of potassium on CMP was 3.1. Specifically liver function studies were normal. Cord blood was obtained. The umbilical cord had 3 vessels. The placenta delivered at 1441 hrs. in a Kilpatrick presentation, appeared intact and complete and was discarded per patient desire. The patient was noted to have a first-degree perineal laceration which was repaired with a single suture of 3-0 Monocryl. Labor analgesia with epidural was used for perineal anesthesia for this repair. Patient tolerated the repair well. Epidural catheter was removed without problem. Patient plans to breast-feed. Estimated blood loss was 100 mL. patient is done well. Her vital signs are stable, she is afebrile. She has minimal lochia, is voiding well, ambulated without concerns and nursing without problems.. Right as is improved. She was restarted on hydroxyzine but not on the ursodiol. She is desiring discharge home. Condition: Good Diagnosis: Stroke: No - Discharge Data Discharge Date: 06/04/19 Discharge Disposition: Home, Self-Care 01 Condition: Good - Referral to Home Health Primary Care Physician: Giovanni Charles MD - Patient Instructions Diet: Regular Diet as Tolerated (Nursing diet with increased calories and calcium as recommended) Activity: As Tolerated (No intercourse or tampons until bleeding resolves) Driving: May Drive Today Showering/Bathing: May Shower (May take a bath) Notify Provider of: Fever, Increased Pain, Swelling and Redness, Nausea and/or Vomiting - Discharge Plan Home Medications: Home Meds No122/Iron/Folic Acid [ Multi Tablet] 1 each PO DAILY 06/03/19 [History] diphenhydrAMINE HCL [Benadryl] 25 mg PO Q4HR 06/03/19 [History] hydrOXYzine HCL [Hydroxyzine HCl] 50 mg PO Q6HR 06/03/19 [History] raNITIdine 150 mg PO Q12HR 06/03/19 [History] ursodioL [Ursodiol] 300 mg PO TID 06/03/19 [History] Acetaminophen [Tylenol] 650 mg PO Q4H PRN tablet 06/04/19 [Rx] Ibuprofen [Motrin] 600 mg PO Q4H PRN tablet 06/04/19 [Rx] hydrOXYzine HCL [hydrOXYzine] 25 mg PO Q6H PRN tablet 06/04/19 [Rx] Referrals: Giovanni Charles MD [Primary Care Provider] - (Return [facility] weeks.) - Discharge Summary/Plan Comment DC Time >30 min.: No Discharge Summary/Plan Comment: Discharge instructions: 1. Discharge home 2. Diet, activity and follow-up discussed with patient. Recommend nursing diet with increased potassium, calories and calcium. 3. Precautions given concern increased pain, bleeding, temperature, signs/ symptoms of DVT/PE. 4. Medications per home medication was printed, discussed with and given to the patient. 5. [facility] Diagnosis: 1. Term -delivered 2. Intrahepatic cholestasis of -atypical Condition: Good - Patient Data Vitals - Most Recent: Last Vital Signs Temp 36.6 C 06/04/19 02:51 Pulse 75 06/04/19 02:51 Resp 15 06/04/19 02:51 BP 124/71 06/04/19 02:51 Pulse Ox 98 06/04/19 02:51 Weight - Most Recent: 68.039 kg I&O - Last 24 hours: Intake & Output 06/03/19 06/03/19 06/04/19 14:59 22:59 06:59 Intake Total 3300 Output Total 1050 Balance 2250 Lab Results - Last 24 hrs: Laboratory Results - last 24 hr 06/03/19 06/03/19 06/03/19 Range/Units 09:04 09:04 09:04 WBC 10.17 H (3.98-10.04) K/mm3 RBC 3.51 L (3.98-5.22) M/mm3 Hgb 11.0 L (11.2-15.7) gm/dl Hct 32.2 L (34.1-44.9) % MCV 91.7 D (79.4-94.8) fl MCH 31.3 (25.6-32.2) pg MCHC 34.2 (32.2-35.5) g/dl RDW Std Deviation 41.4 (36.4-46.3) fL Plt Count 158 L (182-369) K/mm3 MPV 11.1 (9.4-12.3) fl Neut % (Auto) 73.5 H (34.0-71.1) % Lymph % (Auto) 19.6 (19.3-51.7) % [place] % (Auto) 6.2 (4.7-12.5) % Eos % (Auto) 0.3 L (0.7-5.8) Baso % (Auto) 0.2 (0.1-1.2) % Neut # (Auto) 7.48 H (1.56-6.13) K/mm3 Lymph # (Auto) 1.99 (1.18-3.74) K/mm3 [place] # (Auto) 0.63 H (0.24-0.36) K/mm3 Eos # (Auto) 0.03 L (0.04-0.36) K/mm3 Baso # (Auto) 0.02 (0.01-0.08) K/mm3 Sodium 141 (136-145) mEq/L Potassium 3.1 L (3.5-5.1) mEq/L Chloride 107 (98-107) mEq/L Carbon Dioxide 22 (21-32) mEq/L Anion Gap 15.1 H (5-15) BUN 7 (7-18) mg/dL Creatinine 0.5 L (0.55-1.02) mg/dL Est Cr Clr Drug Dosing 141.04 mL/min Estimated GFR (MDRD) > 60 (>60) mL/min BUN/Creatinine Ratio 14.0 (14-18) Glucose 79 (74-106) mg/dL Calcium 7.9 L (8.5-10.1) mg/dL Total Bilirubin 1.1 H (0.2-1.0) mg/dL AST 13 L (15-37) U/L ALT 13 L (14-59) U/L Alkaline Phosphatase 134 H (46-116) U/L Total Protein 6.0 L (6.4-8.2) g/dl Albumin 2.4 L (3.4-5.0) g/dl Globulin 3.6 gm/dL Albumin/Globulin Ratio 0.7 L (1-2) RPR Non-reactive (NONREACTIVE) Med Orders - Current: Current Medications Acetaminophen (Tylenol) 650 mg PO Q4H PRN PRN Reason: mild pain or fever Last Admin: 06/03/19 20:25 Dose: 650 mg Benzocaine/Menthol (Dermoplast Pain Relief [place]) 0 gm TOP ASDIRECTED PRN PRN Reason: Perineal Comfort Measure Last Admin: 06/03/19 18:19 Dose: 1 can Docusate Sodium (Colace) 100 mg PO BID PRN PRN Reason: Constipation Last Admin: 06/04/19 02:49 Dose: 100 mg Hydroxyzine HCl (Atarax) 25 mg PO Q6H PRN PRN Reason: Itching Last Admin: 06/03/19 18:11 Dose: 25 mg Ibuprofen (Motrin) 600 mg PO Q4H PRN PRN Reason: Mild pain or fever Last Admin: 06/04/19 02:46 Dose: 600 mg Prenat Multivit/Information Systems Security Manager/Iron/Folic Ac ( Plus Iron) 1 each PO DAILY [facility] Shanta Arthur (Tucks) 1 pad TOP ASDIRECTED PRN PRN Reason: Perineal Comfort Measure Last Admin: 06/03/19 18:18 Dose: 1 container Discontinued Medications Diphenhydramine HCl (Benadryl) 25 mg IVPUSH Q6H PRN PRN Reason: pruritis Ephedrine Sulfate (Ephedrine Sulfate) 5 mg IVPUSH ASDIRECTED PRN PRN Reason: Hypotension Fentanyl (Sublimaze) 100 mcg EPIDUR Q3H PRN PRN Reason: Pain Last Admin: 06/03/19 10:45 Dose: 100 mcg Fentanyl/Bupivacaine HCl (Fentanyl/Bupivacaine/Ns 2 Mcg-0.125% 100 Ml) 100 ml EPIDUR ASDIRECTED PRN PRN Reason: Pain Last Admin: 06/03/19 10:45 Dose: 100 ml Lactated Ringer's (Ringers, Lactated) 1,000 mls @ 100 mls/hr IV ASDIRECTED JUNIOR Last Admin: 06/03/19 11:36 Dose: 100 mls/hr Oxytocin/Lactated Ringer's (Pitocin In Lr 10 Units/1,000 Ml) 10 unit in 1,000 mls @ 12 mls/hr IV TITRATE JUNIOR; Protocol Last Titration: 06/03/19 14:38 Dose: 999 mls/hr Oxytocin/Lactated Ringer's (Pitocin In Lr 10 Units/1,000 Ml) 10 unit in 1,000 mls @ 500 mls/hr IV .CONTINUOUS JUNIOR Lidocaine HCl (Xylocaine 1%) 20 ml INJECT ONETIME ONE Stop: 04/28/20 08:05 Last Admin: 06/03/19 19:45 Dose: Not Given Nalbuphine HCl (Nubain) 10 mg IVPUSH Q2H PRN PRN Reason: Pain Sodium Chloride (Saline Flush) 10 ml FLUSH ASDIRECTED PRN PRN Reason: Keep Vein Open
[2019-06-04] MEDS ORDERED: Prenatal Multivitamin with Calcium/Folic Acid/Iron Tab PO SCH (09:00)
--- NOTE | 2019-06-04 09:03 | PCM48HPAN ---
Post Anesthesia Note - EVALUATION WITHIN 48HRS OF ANESTHETIC Vital Signs in Normal Range: Yes Patient Participated in Evaluation: Yes Respiratory Function Stable: Yes Airway Patent: Yes Cardiovascular Function Stable: Yes Hydration Status Stable: Yes Pain Control Satisfactory: Yes Nausea and Vomiting Control Satisfactory: Yes Mental Status Recovered: Yes Vital Signs: Last Vital Signs Temp 97.9 F 06/04/19 02:51 Pulse 75 06/04/19 02:51 Resp 15 06/04/19 02:51 BP 124/71 06/04/19 02:51 Pulse Ox 98 06/04/19 02:51 - COMMENTS/OBSERVATIONS Free Text/Narrative:: Patient is on her day 1. Stated understanding about possible backaches following epidural anesthesia. Mentions having some minor back soreness at this time. Denies any headache or lightheadedness at this time. Comfortable now. Ambulating, no difficulty urinating.
[2019-06-04] MEDS: Benzocaine/Menthol 20%-0.5% Spray 56 GM Canister TOP PRN (13:14)
[2019-06-04] MEDS: Witch Hazel Medicated Pads 40/Jar TOP PRN (13:14)
== END 2019-06-04 16:10 | disposition home or self-care (01) | DRG 807 ==
LOC: JD.OB 07:07 → OBSVTOIN 14:37 → JD.OB 14:37
PROVIDERS: ADMIT Obstetrics & Gynecology; ATTEND Obstetrics & Gynecology
PROC: 10E0XZZ Delivery of Products of Conception, External Approach (ICD-10-PCS; principal; 2019-06-03)
PROC: 10907ZC Drainage of Amniotic Fluid, Therapeutic from Products of Conception, Via Natural or Artificial Opening (ICD-10-PCS; 2019-06-03)
PROC: 3E033VJ Introduction of Other Hormone into Peripheral Vein, Percutaneous Approach (ICD-10-PCS; 2019-06-03)
PROC: 0HQ9XZZ Repair Perineum Skin, External Approach (ICD-10-PCS; 2019-06-03)
PROC: 3E0R3BZ Introduction of Anesthetic Agent into Spinal Canal, Percutaneous Approach (ICD-10-PCS; 2019-06-03)
DX: O26.893 Other specified pregnancy related conditions, third trimester (principal); Z37.0 Single live birth; L29.9 Pruritus, unspecified; Z3A.37 37 weeks gestation of pregnancy; O70.0 First degree perineal laceration during delivery
CPT/HCPCS: 36415; 51702; 59025; 59409; 80053; 85025; 86592; A9270-GY; J2590; J3010; J7120

== ENCOUNTER 2021-02-26 07:08 | Inpatient (IN) | payer BC ==
[2021-02-26] MEDS ORDERED: Ondansetron 4 MG/2 ML SDV IVPUSH PRN (08:12)
[2021-02-26] MEDS ORDERED: Calcium Carbonate 500 MG Tab.Chew PO PRN (08:12)
[2021-02-26] MEDS ORDERED: Nalbuphine 10 MG/1 ML Vial IVPUSH PRN (08:12)
[2021-02-26] MEDS ORDERED: Oxytocin/Lactated Ringers 10 UNIT/1,000 ML BAG IV SCH ×2 (08:15)
[2021-02-26] MEDS ORDERED: Lactated Ringers 1,000 ML IV SCH (08:15)
[2021-02-26] MEDS ORDERED: Sodium Chloride 0.9% 10 ML Syringe FLUSH SCH (09:00)
[2021-02-26] MEDS ORDERED: fentaNYL 100 MCG/2 ML SDV ONE (10:27)
[2021-02-26] MEDS ORDERED: diphenhydrAMINE 50 MG/ML SDV IVPUSH PRN (10:35)
[2021-02-26] MEDS ORDERED: ePHEDrine 50 MG/ML SDV IVPUSH PRN (10:35)
[2021-02-26] MEDS ORDERED: fentaNYL 100 MCG/2 ML SDV EPIDUR PRN (10:35)
[2021-02-26] MEDS ORDERED: Bupivacaine/fentaNYL/NS 100 ML Bag EPIDUR PRN (10:35)
[2021-02-26] MEDS ORDERED: Lidocaine 1.5% with EPINEPHrine 1:200,000 5 ML Amp ONE (12:00)
[2021-02-26] MEDS ORDERED: Acetaminophen 325 MG Tab PO PRN (17:39)
[2021-02-26] MEDS ORDERED: Docusate Sodium 100 MG Cap PO PRN (17:39)
[2021-02-26] MEDS ORDERED: Witch Hazel Medicated Pads 40/Jar TOP PRN (17:39)
[2021-02-26] MEDS ORDERED: Benzocaine/Menthol 20%-0.5% Spray 78 GM Cannister TOP PRN (17:39)
[2021-02-26] MEDS: Ibuprofen 600 MG Tab PO PRN (20:51)
[2021-02-27] MEDS: Ibuprofen 600 MG Tab PO PRN ×3 (03:58→13:26)
== END 2021-02-27 17:15 | disposition home or self-care (01) | DRG 560 ==
LOC: JD.OBCHECK 07:08 → JD.OB 07:27 → JD.OBCHECK 07:35 → JD.OB 07:36 → OBSVTOIN 17:20 → JD.OB 23:22
PROVIDERS: ADMIT Obstetrics & Gynecology; ATTEND Obstetrics & Gynecology
PROC: 10E0XZZ Delivery of Products of Conception, External Approach (ICD-10-PCS; principal; 2021-02-26)
PROC: 10907ZC Drainage of Amniotic Fluid, Therapeutic from Products of Conception, Via Natural or Artificial Opening (ICD-10-PCS; 2021-02-26)
PROC: 3E033VJ Introduction of Other Hormone into Peripheral Vein, Percutaneous Approach (ICD-10-PCS; 2021-02-26)
PROC: 0HQ9XZZ Repair Perineum Skin, External Approach (ICD-10-PCS; 2021-02-26)
PROC: 3E0R3BZ Introduction of Anesthetic Agent into Spinal Canal, Percutaneous Approach (ICD-10-PCS; 2021-02-26)
PROC: 00HU33Z Insertion of Infusion Device into Spinal Canal, Percutaneous Approach (ICD-10-PCS; 2021-02-26)
DX: O26.893 Other specified pregnancy related conditions, third trimester (principal); Z37.0 Single live birth; L29.9 Pruritus, unspecified; O98.52 Other viral diseases complicating childbirth; U07.1 COVID-19; O99.354 Diseases of the nervous system complicating childbirth; G43.709 Chronic migraine without aura, not intractable, without status migrainosus; Z3A.37 37 weeks gestation of pregnancy; O69.1XX0 Labor and delivery complicated by cord around neck, with compression, not applicable or unspecified; O99.62 Diseases of the digestive system complicating childbirth; K21.9 Gastro-esophageal reflux disease without esophagitis; O70.0 First degree perineal laceration during delivery; Z88.0 Allergy status to penicillin
CPT/HCPCS: 01967; 36415; 51702; 59025; 59409; 80053; 85025; 86592; 86850; 86870; 86900; 86901; A9270-GY; J2590; J3010; J7120; U0002